=== PATIENT | male | born 1960 | race Caucasian/White ===

== ENCOUNTER 2019-04-28 10:11 | Observation (INO) | payer BC ==
[~2019-04-28] VITALS: Ht 172.7 cm; Wt 100.0 kg
[~2019-04-28 10:11] MED LIST: ASCO500T7 PO; ASPI-496 PO; ENAL10TA71 PO; GLUC1CAP18 PO; GLYB5TAB3 PO; ISOS30TA8 PO; MAGN400T36 PO; METF100010 PO; METO25TA2 PO; METO50TA82 PO; NITR0.4T41 SL; OMEG1CAP6 PO; PRAS10TA4 PO; ROSU10TA2 PO; SIMV40TA3 PO
[2019-04-28] MEDS ORDERED: EZET10TA70 PO (11:40)
[2019-04-28] MEDS ORDERED: ALIR150P SC (11:46)
[2019-04-28] MEDS ORDERED: JUICE PLUS (11:46)
[2019-04-28] MEDS ORDERED: LIRA0.6P SQ (11:48)
[2019-04-28 11:50] VITALS: BP 123/78
[2019-04-28] MEDS ORDERED: INSU100I13 SQ (11:50)
[2019-04-28] MEDS ORDERED: ECHINACEA (11:56)
[2019-04-28] MEDS ORDERED: MULTIVITAMIN (11:56)
[2019-04-28] MEDS ORDERED: CHOL5000 PO (11:58)
[2019-04-28] MEDS ORDERED: TICAGRELOR 90 MG TABLET ONE (12:21)
[2019-04-28] MEDS ORDERED: MIDAZOLAM 1 MG/ML, 5ML ONE (12:21)
[2019-04-28] MEDS ORDERED: VERAPAMIL 2.5 MG/ML, 2ML ONE (12:21)
[2019-04-28] MEDS ORDERED: FENTANYL PF 100 MCG/2ML ONE (12:21)
[2019-04-28] MEDS ORDERED: LIDOCAINE-MPF 1%, 5ML ONE (12:22)
[2019-04-28] MEDS ORDERED: HEPARIN 1,000 UNITS/ML, 10ML ONE (12:22)
[2019-04-28] MEDS ORDERED: BIVALIRUDIN 250 MG ONE ×2 (12:22→15:47)
[2019-04-28] MEDS ORDERED: NITROGLYCERIN 5 MG/ML, 10ML ONE (12:22)
[2019-04-28] MEDS ORDERED: PRASUGREL 10 MG TABLET ONE (13:43)
[2019-04-28] MEDS ORDERED: BIVALIRUDIN 250 MG in SODIUM CHLORIDE 0.9% 50 ML IV SCH (14:28)
[2019-04-28] MEDS: SODIUM CHLORIDE 0.9% 1,000 ML IV SCH ×2 (14:28→20:38)
[2019-04-28] MEDS ORDERED: METO25TA91 PO (14:28)
[2019-04-28] MEDS ORDERED: ZOLPIDEM 5MG TABLET PO PRN (14:30)
[2019-04-28] MEDS ORDERED: ACETAMINOPHEN 325 MG TABLET PO PRN (14:30)
[2019-04-28] MEDS ORDERED: ONDANSETRON 2MG/ML, 2ML IVPush PRN (14:30)
[2019-04-28] MEDS ORDERED: ENAL5TAB PO (14:32)
[2019-04-28] MEDS ORDERED: ACETAMINOPHEN 325 MG TABLET ONE (14:56)
[2019-04-28] MEDS ORDERED: NITROGLYCERIN SINGLE TAB 0.4 MG SL PRN (15:00)
[2019-04-28] MEDS ORDERED: ALIROCUMAB 150 MG SC SCH (15:00)
[2019-04-28 19:13] VITALS: BP 122/71
[2019-04-28 20:46] LABS: TROPONIN I 0.057 ng/mL (0.000-0.045)
[2019-04-28] MEDS ORDERED: INSULIN GLARGINE 100 UNITS/ML, PEN SQ-INSULIN SCH (21:00)
[2019-04-28] MEDS ORDERED: TEMPLATE NON-FORMULARY MED. (Metformin Hcl** (Metformin Hcl Er**) 1,000 MG) PO SCH (21:00)
[2019-04-28] MEDS ORDERED: LIRAGLUTIDE 1.8 MG SQ SCH (21:00)
[2019-04-29 01:30] VITALS: BP 135/81
[2019-04-29] MEDS: SODIUM CHLORIDE 0.9% 1,000 ML IV SCH (02:22)
[2019-04-29 04:57] LABS: ANION GAP 5 mmol/L (5-15); CALCIUM 8.6 mg/dL (8.5-10.1); CHLORIDE 106 mmol/L (98-107); CREATININE 0.61 mg/dL (0.7-1.3)
[2019-04-29] MEDS ORDERED: GlyBURIDE 5 MG TABLET PO SCH (07:30)
[2019-04-29 07:45] VITALS: BP 133/78
[2019-04-29] MEDS ORDERED: PRAS10TA4 PO (08:44)
[2019-04-29] MEDS ORDERED: METOPROLOL SUCCINATE 25 MG TAB.ER.24H PO SCH (09:00)
[2019-04-29] MEDS ORDERED: PRASUGREL 10 MG TABLET PO SCH (09:00)
[2019-04-29] MEDS ORDERED: MAGNESIUM OXIDE 400 MG TABLET PO SCH (09:00)
[2019-04-29] MEDS ORDERED: ASCORBIC ACID 500 MG TABLET PO SCH (09:00)
[2019-04-29] MEDS ORDERED: CHOLECALCIFEROL 5,000u TAB PO SCH (09:00)
[2019-04-29] MEDS ORDERED: ENALAPRIL 5MG TABLET PO SCH (09:00)
[2019-04-29] MEDS ORDERED: ASPIRIN 81 MG TABLET EC PO SCH ×2 (09:00)
[2019-04-29] MEDS ORDERED: EZETIMIBE 10 MG TABLET PO SCH (09:00)
== END 2019-04-29 09:35 | disposition home or self-care (01) ==
LOC: CACL 10:11 → ORIP 14:28 → 5SO 16:39 → DCLOUNGE 04-29 09:31
PROVIDERS: ADMIT Internal Medicine Cardiovascular Disease; ATTEND Internal Medicine Cardiovascular Disease
DX: I25.110 Atherosclerotic heart disease of native coronary artery with unstable angina pectoris (principal); I10 Essential (primary) hypertension; G47.33 Obstructive sleep apnea (adult) (pediatric); K21.9 Gastro-esophageal reflux disease without esophagitis; E78.5 Hyperlipidemia, unspecified; E11.9 Type 2 diabetes mellitus without complications; M25.511 Pain in right shoulder; M25.512 Pain in left shoulder; G89.29 Other chronic pain; Z79.4 Long term (current) use of insulin; Z79.01 Long term (current) use of anticoagulants; Z79.82 Long term (current) use of aspirin
CPT/HCPCS: 36415; 80048; 82962; 84484; 85014; 85018; 93005; 93458; 96372; 99156; 99157; C1725; C1769; C1874; C1887; C1894; C9600; G0378; J0583; J1644; J1815; J2250; J3010; Q9967

== ENCOUNTER 2021-02-13 08:44 | Day surgery (SDC) | payer BC ==
[~2021-02-13] VITALS: Ht 172.7 cm; Wt 90.0 kg
[~2021-02-13 08:44] MED LIST changes: +ALIR150P3 SC; +CHOL5000 PO; +ECHINACEA; +ENAL5TAB10 PO; +EZET10TA70 PO; +INSU100I13 SQ; +JUICE PLUS; +LIRA0.6P SQ; +METO25TA91 PO; +MULTIVITAMIN; +SIMV40TA20 PO; -SIMV40TA3 PO
[2021-02-13] MEDS ORDERED: EMPA10TA PO (09:12)
[2021-02-13] MEDS ORDERED: PRAS10TA4 PO (09:12)
[2021-02-13 09:45] LABS: ANION GAP 8 mmol/L (5-15); BASOPHILS % (AUTO) 1 % (0-1); CALCIUM 9.3 mg/dL (8.5-10.1); CHLORIDE 104 mmol/L (98-107); CREATININE 0.65 mg/dL (0.7-1.3); EOSINOPHILS % (AUTO) 3 % (1-7); LYMPHOCYTES % (AUTO) 35 % (22-44); MEAN CORPUSCULAR HEMOGLOBIN 29.3 pg (27.5-34.5); MEAN CORPUSCULAR HGB CONC 33.7 g/dL (33.2-36.2); MEAN PLATELET VOLUME 8.6 fL (7.4-10.4); MONOCYTES % (AUTO) 10 % (2-9); NEUTROPHILS % (AUTO) 51 % (42-75); PLATELET COUNT 325 x10^3/uL (130-400); RED CELL DISTRIBUTION WIDTH 13.5 % (9.4-14.8)
[2021-02-13] MEDS ORDERED: MIDAZOLAM 1 MG/ML, 2ML ONE (11:21)
[2021-02-13] MEDS ORDERED: VERAPAMIL 2.5 MG/ML, 2ML ONE (11:21)
[2021-02-13] MEDS ORDERED: BIVALIRUDIN 250 MG ONE (11:21)
[2021-02-13] MEDS ORDERED: HEPARIN 1,000 UNITS/ML, 10ML ONE (11:21)
[2021-02-13] MEDS ORDERED: LIDOCAINE-MPF 1%, 5ML ONE (11:21)
[2021-02-13] MEDS ORDERED: FENTANYL PF 100 MCG/2ML ONE (11:21)
== END 2021-02-13 14:03 | disposition home or self-care (01) ==
LOC: CACL 08:44
PROVIDERS: ATTEND Internal Medicine Cardiovascular Disease
DX: I25.10 Atherosclerotic heart disease of native coronary artery without angina pectoris (principal); E11.9 Type 2 diabetes mellitus without complications; G47.33 Obstructive sleep apnea (adult) (pediatric); K21.9 Gastro-esophageal reflux disease without esophagitis; I10 Essential (primary) hypertension; E78.5 Hyperlipidemia, unspecified; Z79.4 Long term (current) use of insulin; Z88.5 Allergy status to narcotic agent; Z88.8 Allergy status to other drugs, medicaments and biological substances; Z98.890 Other specified postprocedural states; Z79.899 Other long term (current) drug therapy
CPT/HCPCS: 36415; 80048; 85025; 93458; 99156; C1769; C1894; J1644; J2250; J3010; Q9967; J0583